=== PATIENT | female | born 1990 | race African-American/Black ===

== ENCOUNTER → 2024-05-07 10:29 | Outpatient (REF) | payer OTHER, SELFPAY ==
[2024-05-08 16:33] LABS: Varicella Zoster IgG (VZV) Negative
[2024-05-08 21:27] LABS: Hepatitis B Surface Antibody Positive
[2024-05-09 15:07] LABS: Quantiferon Mitogen minus NIL 9.96 IU/mL; Quantiferon NIL 0.04 IU/mL; Quantiferon Plus TB1 minus NIL 0.01 IU/mL (<=0.34); Quantiferon Plus TB2 minus NIL 0.01 IU/mL (<=0.34); Quantiferon TB Gold Plus Negative (Negative)
== END ==
LOC: OHS 10:29
PROVIDERS: ATTENDING PHYSICIAN Nurse Practitioner Family
DX: Z23 Encounter for immunization (principal)
CPT/HCPCS: 36415; 86480; 86706; 86787

== ENCOUNTER 2024-11-01 22:01 | Emergency (ER) | payer OTHER, SELFPAY ==
[2024-11-01 22:03] VITALS: BP 164/107
[2024-11-01 22:30] VITALS: BP 138/77
[2024-11-01 22:56] VITALS: BMI 33.5
--- NOTE | 2024-11-01 23:02 | ED.GENMED ---
History of Present Illness
General
Chief Complaint: Headache
Source: patient
Exam Limitations: none
Time Seen by Provider: 11/01/24 22:24
Nursing documentation reviewed up to this point in time: agreed with
History of Present Illness
History of Present Illness:
Pleasant 34-year-old female presents to the emergency department with left eye pain and headache. She was cleaning with a wipe and some got into her eye. She states that she had eye pain. Denies any visual changes.
Review of Systems
Review of Systems
Allergies reviewed?: Yes
All Other Systems: ROS reviewed and negative except as documented in HPI and ROS
Constitutional: Reports no symptoms
EENT: Reports no symptoms
Respiratory: Reports no symptoms
Cardiac: Reports no symptoms
ABD/GI: Reports no symptoms
: Reports no symptoms
Musculoskeletal: Reports no symptoms
Skin: Reports no symptoms
Neurological: Reports headache
Endocrine: Reports no symptoms
Hematologic/Lymphatic: Reports no symptoms
Psychiatric: Reports anxiety
Phy Exam
Physical Exam
Physical Exam:
Physical Exam
Vital signs and allergy list reviewed and agreed with.
GENERAL: Alert , in minimal apparent distress
EYE: pupils equal, EOMI, anicteric. Corneal abrasion as discussed
NECK: Supple, no significant adenopathy. No masses. Trachea midline
ENT: Oropharynx is clear, mmm.
CARDIAC: Regular rate and rhythm . No M/R/G
LUNGS: Clear breath sounds bilaterally, no acute respiratory distress, no wheezes/rales/rhonchi
ABDOMEN: Soft, without focal tenderness, no r/g, no cvat. Normal BSx4q
NEUROLOGICAL: Alert and oriented, no focal neuro deficits
SKIN: Warm and dry, skin intact.
MUSCULOSKELETAL: No edema, well perfused. Moves all 4 extremities
PSYCH: Normal and appropriate interaction.
ENT Exam
ENT Exam: EOMI
Eye Exam
Eye Exam: PERRL, EOMI and visual jones normal
Eye Exam General: PERRL: bilateral
Cornea Exam: abrasion: Left (Horizontal likely from a thumbnail)
Cardiovascular Exam
Cardiovascular Exam: regular rate/rhythm and no edema
Musculoskeletal Exam
Musculoskeletal Exam: full ROM and neuro vasc intact
Skin Exam
Skin Exam: normal color and warm/dry
Psychiatric Exam
Psychiatric Exam: normal mood/affect
Course
Orders/Labs/Results
Orders:
Orders
11/01/24 23:02
Acetaminophen [Tylenol] 650 mg PO NOW STA
11/02/24 00:41
Gentamicin [Genoptic 0.3% Eye Drops] See Dose Instructions OPHTH NOW STA
11/02/24 00:52
Fluorescein Sodium [Ful-Karen] 1 mg .ROUTE .STK-MED ONE
Tetracaine HCl [Tetracaine 0.5% Ophthalmic Solution] 1 drop .ROUTE .STK-MED ONE
Vital Signs
Initial and Last Documented VS:
Initial Vital Signs
Temp Pulse Resp BP Pulse Ox
98.7 F 79 18 164/107 100
11/01/24 22:03 11/01/24 22:03 11/01/24 22:03 11/01/24 22:03 11/01/24 22:03
Last Documented Vital Signs
Temp Pulse Resp BP Pulse Ox
98.7 F 76 18 132/90 100
11/01/24 22:03 11/02/24 00:30 11/02/24 00:30 11/02/24 00:30 11/02/24 00:30
*Pulse Oximetry
Patient hypoxic: no
*Critical Care Note
Total Time (30-74mins, 75-104mins- exclusive of procedures): Not Applicable
Update Note
Update Note:
Patient had corneal abrasion
Patient thoroughly flushed eye prior to arrival
Tetanus was updated within the last year
ED Attending Note
-
Portions of this chart may have been created with voice recognition software.� Occasional wrong word or��sound alike� substitutions may have occurred due to the inherent limitations of voice recognition software.
Discharge Plan
Departure
Patient Disposition: Home (Routine Discharge)
Date of Disposition: 11/02/24
Time of Disposition: 00:42
Patient with high blood pressure during this ER visit?: Yes
Discharge Problem:
Abrasion, corneal
Instructions: Corneal abrasion - ED discharge instructions, BLOOD PRESSURE
Prescriptions:
No Action
No Current Medications
0
Referrals:
NEVAREZ,HUNG [Other]
Activity Restrictions/Additional Instructions:
Thank You for choosing [facility].
It was a pleasure meeting you and taking part in your care. We hope for your continued healing and wellness.
Please read discharge instructions in their entirety. However, they are for general education and may not describe your exact diagnosis at discharge. Information on your ER visit and medical conditions were discussed with you along with appropriate
follow up information...
If indicated, please take your medications as instructed and indicated on discharge paperwork.
Please schedule a follow up appointment as directed. Call to schedule an appointment
Please return to the emergency department with ANY change in, persisting, or worsening of symptoms. If any of your symptoms do not improve, or persist, or become more severe within 6-12 hours, please return to the emergency department for further
care.
Please return to the emergency department if you develop a headache, neck pain/stiffness, fever greater than 100.4F, chest pain, shortness of breath, persistent nausea, vomiting, slurred speech, difficulty walking, numbness/tingling, weakness, signs
of infection or any other symptoms that are worrisome to you.
If you have any questions or concerns please do not hesitate to call the Hospital at or E-mail me directly at [email or web address]
Interventions
Interventions:
*Risk Screen - Suicide Last Done: 11/01/24 22:03
*General Assessment Last Done: 11/01/24 22:03
*Neglect/Abuse Screening Last Done: 11/01/24 22:03
*ED- Fall Risk Assessment Last Done: 11/01/24 22:03
*ED COVID-19 Vaccine History Last Done: 11/01/24 22:03
*Nursing Disposition Last Done: 11/02/24 00:53
ED- Neurological Assessment Last Done: 11/01/24 22:29
Discharge Date and Time
Discharge Date/Time: 11/02/24 00:55
Print Language: FAROESE
[2024-11-01] MEDS: TYLENOL 650 MG PO (23:04)
[2024-11-02 00:30] VITALS: BP 132/90
[2024-11-02] MEDS: GENOPTIC 0.3% EYE DROPS 1 DROP OPHTH (00:45)
== END 2024-11-02 00:55 | disposition home or self-care (01) ==
LOC: EMR 22:01
PROVIDERS: EMERGENCY PHYSICIAN Student in an Organized Health Care Education/Training Program
DX: S05.02XA Injury of conjunctiva and corneal abrasion without foreign body, left eye, initial encounter (principal); R51.9 Headache, unspecified; X58.XXXA Exposure to other specified factors, initial encounter
CPT/HCPCS: 99283

== ENCOUNTER 2025-02-06 21:03 | Emergency (ER) | payer OTHER, SELFPAY ==
[2025-02-06 21:06] VITALS: BP 159/109
[2025-02-06 21:49] LABS: COVID-19 Antigen Negative (Negative)
[2025-02-07] MEDS: TYLENOL 1000 MG PO (01:40)
[2025-02-07 01:42] VITALS: BMI 34.2
[2025-02-07 01:50] VITALS: BP 133/98
[2025-02-07 01:54] LABS: Hematocrit 40.1 % (37.0-47.0); Hemoglobin 13.5 g/dL (12.0-16.0); Mean Corp Hgb Conc. 33.7 g/dL (33.0-37.0); Mean Corpuscular Volume 87.0 fL (81.0-99.0); Nucleated Red Blood Cells % 0 %; Platelet Count 221 10^3/uL (130-400); Red Cell Dist. Width 13.2 % (11.5-14.5)
[2025-02-07 02:09] LABS: HCG, Serum Qualitative Screen Negative
[2025-02-07 02:12] LABS: ALT (SGPT) 15 U/L (0-35); AST (SGOT) 18 U/L (14-36); Albumin 4.8 g/dl (3.5-5.0); Alkaline Phosphatase 65 U/L (38-126); Blood Urea Nitrogen 5 mg/dl (7-17); Calcium 10.0 mg/dl (8.4-10.2); Carbon Dioxide 27 mmol/L (22-30); Chloride 105 mmol/L (98-107); Estimated Creatinine Clearance > 125 ml/min; Glucose 160 mg/dl (70-99); Lipase 99 U/L (23-300); Potassium 4.1 mmol/L (3.5-5.1); Sodium 139 mmol/L (135-145); Total Protein 8.3 g/dl (6.3-8.2); eGFR > 60.00
[2025-02-07 02:46] LABS: Urine Character Clear (Clear)
[2025-02-07 02:58] VITALS: BP 134/89
[2025-02-07 03:26] LABS: Urine Squamous Cell >30 /LPF (Few)
[2025-02-07 03:27] LABS: Urine White Cell None Seen /HPF (0-5)
--- NOTE | 2025-02-07 22:47 | ED.GENMED ---
History of Present Illness
General
Chief Complaint: Cold/Flu/URI Symptoms
Source: patient
Exam Limitations: none
Time Seen by Provider: 02/07/25 00:47
Nursing documentation reviewed up to this point in time: agreed with
History of Present Illness
History of Present Illness:
Patient to ED with complaint of sorethroat, nasal discharge, cough and body aches x 24 hours. Denies fever/chills. No cp/pressure, SOB. No abdominal pain, n/v/d Brought self to ED for eval.
Past History
Past History
ED Past Medical History: NIDDM
ED Past Surgical History: and Other (Hernia repair)
Review of Systems
Review of Systems
Allergies reviewed?: Yes
All Other Systems: ROS reviewed and negative except as documented in HPI and ROS
Constitutional: Reports other (generalized body aches)
EENT: Reports sore throat and runny nose
Respiratory: Reports cough
Cardiac: Reports no symptoms
ABD/GI: Reports no symptoms
: Reports no symptoms
Musculoskeletal: Reports no symptoms
Skin: Reports no symptoms
Neurological: Reports no symptoms
Psychiatric: Reports no symptoms
Phy Exam
General Physical Exam
General Presentation: well appearing and mild distress
General age: appears stated age
General Skin: warm and dry
General Habitus: normal
General Mental: alert
ENT Exam
ENT Exam: EOMI, TM's normal, pharynx normal, neck supple, normocephalic and swallowing well
Cardiovascular Exam
Cardiovascular Exam: regular rate/rhythm and no edema
Pulmonary Exam
Pulmonary Exam: lungs clear, no respiratory distress and chest non tender
Gastrointestinal Exam
Gastrointestinal Exam: non tender, soft, no organomegaly, no pulsatile mass and non distended
Musculoskeletal Exam
Musculoskeletal Exam: full ROM and neuro vasc intact
Skin Exam
Skin Exam: normal color, warm/dry and no rash
Psychiatric Exam
Psychiatric Exam: normal mood/affect
Course
Orders/Labs/Results
Orders:
Orders
02/06/25 21:16
COVID-19 Antigen Urgent
Source: Nasal Swab
Influenza A+B Rapid Molecular Urgent
EDDY Source: Nasal Swab
Specimen Description:
02/07/25 01:15
Test Result ONCE
02/07/25 01:35
Acetaminophen [Tylenol] 1,000 mg PO NOW STA
02/07/25 01:46
Complete Blood Count/With Diff Urgent
Comprehensive Metabolic Panel Urgent
HCG, Serum Qualitative Screen Urgent
Lipase Urgent
Urinalysis Reflex To Culture Urgent
Date Specimen was Collected: 02/07/25
Time Specimen was Collected: 01:26
Urine Microscopic Reflex Cult Urgent
Rapid Strep Group A Urgent
EDDY Source: Throat/Pharynx
Specimen Description:
Date Specimen was Collected: 02/07/25
Time Specimen was Collected: 01:37
Abnormal Lab Results
02/07/25
01:46
MPV 10.6 H fL
(7.4-10.4)
Absolute Monos (auto) 0.8 H 10^3/uL
(0.1-0.6)
Monocytes % 10.1 H %
(1.7-9.3)
BUN 5 L mg/dl
(7-17)
Creatinine 0.5 L mg/dL
(0.6-1.0)
Glucose 160 H mg/dl
(70-99)
Total Protein 8.3 H g/dl
(6.3-8.2)
Ur Occult Blood Reflex 2+ A
(Negative)
Urine RBC 3-6 A /HPF
(0-2)
Urine Bacteria (Reflex) Few A
(Negative)
02/07/25 01:46
02/07/25 01:46
Vital Signs
Initial and Last Documented VS:
Initial Vital Signs
Temp Pulse Resp BP Pulse Ox
98.4 F 88 18 159/109 99
02/06/25 21:06 02/06/25 21:06 02/06/25 21:06 02/06/25 21:06 02/06/25 21:06
Last Documented Vital Signs
Temp Pulse Resp BP Pulse Ox
98.4 F 78 18 134/89 99
02/06/25 21:06 02/07/25 02:58 02/07/25 02:58 02/07/25 02:58 02/07/25 02:27
*Radiology
Radiology exam reviewed: radiology read reviewed
*Pulse Oximetry
SaO2: 99
Oxygen Mode of Delivery: Room air
Patient hypoxic: no
*Critical Care Note
Total Time (30-74mins, 75-104mins- exclusive of procedures): Not Applicable
Update Note
Update Note:
Patient to ED wtih complaint of sorethroat, nassal congestion, cough and body aches x 24 hours. No fever/chills. Labs reviewed. WBC normal. CMP without concerning findings. covid influenza and strep neg, LCTA, pulse ox 98% RA. Most likely viral
URI. recommend rest, fluids, tylenol/ibuprofen as need, follow upw ith PCP. She was given instructions on s/s to return to eD and she is agreeable to plan.
ED Attending Note
-
Portions of this chart may have been created with voice recognition software.� Occasional wrong word or��sound alike� substitutions may have occurred due to the inherent limitations of voice recognition software.
Discharge Plan
Departure
Patient Disposition: Home (Routine Discharge)
Date of Disposition: 02/07/25
Time of Disposition: 02:24
Patient with high blood pressure during this ER visit?: No
Condition: Good
Covid-19: Not Applicable
Discharge Problem:
URI (upper respiratory infection)
Instructions: Viral Upper Respiratory Infection, Adult (DC)
Prescriptions:
No Action
No Current Medications
0
Referrals:
RENAE NEVAREZ [Other] - Follow up in 2-3 days
Stand Alone Forms: Return to Work
Interventions
Interventions:
*Risk Screen - Suicide Last Done: 02/06/25 21:06
*General Assessment Last Done: 02/07/25 01:00
*Neglect/Abuse Screening Last Done: 02/06/25 21:09
*ED- Fall Risk Assessment Last Done: 02/07/25 01:00
*ED COVID-19 Vaccine History Last Done: 02/07/25 01:00
*Nursing Disposition Last Done: 02/07/25 03:04
ED- Pulmonary Assessment Last Done: 02/07/25 01:00
Discharge Date and Time
Discharge Date/Time: 02/07/25 03:05
Print Language: HEBREW
== END 2025-02-07 03:05 | disposition home or self-care (01) ==
LOC: EMR 21:03
PROVIDERS: Nurse Practitioner; EMERGENCY PHYSICIAN Emergency Medicine
DX: J06.9 Acute upper respiratory infection, unspecified (principal); E11.9 Type 2 diabetes mellitus without complications; Z98.891 History of uterine scar from previous surgery
CPT/HCPCS: 99283; 80053; 81003; 81015; 83690; 84703; 85025; 87070; 87502; 87811; 87880